=== PATIENT | female | born 1960 ===

== ENCOUNTER 2017-11-02 17:27 | Emergency (ER) | payer MEDICAID, OTHER ==
[2017-11-02 17:32] VITALS: BMI 27.9
[2017-11-02] MEDS ORDERED: Sodium Chloride 0.9% 1,000 ML IV ONE (18:05)
--- NOTE | 2017-11-02 18:15 | C.PDOC ---
History Of Present Illness 57 year old female with PMHx of hypertension and diabetes presents to the ED complaining of abdominal pain for one month, worse in the upper abdomen and epigastric region. Patient states she had a cholecystectomy in 1998. She denies any fever, nausea, vomiting, diarrhea or other medical complaints. Time Seen by Provider: 11/02/17 17:35 Chief Complaint (Nursing): Abdominal Pain History Per: Patient History/Exam Limitations: no limitations Onset/Duration Of Symptoms: Days Current Symptoms Are (Timing): Still Present Location Of Pain/Discomfort: Epigastric Associated Symptoms: denies: Fever, Chills, Nausea, Vomiting, Diarrhea Past Medical History Reviewed: Historical Data, Nursing Documentation, Vital Signs Vital Signs: Last Vital Signs Temp 98.2 F 11/02/17 20:45 Pulse 60 11/02/17 20:45 Resp 20 11/02/17 20:45 BP 144/67 11/02/17 20:45 Pulse Ox 99 11/02/17 20:45 - Medical History PMH: Hypercholesterolemia Surgical History: Cholecystectomy Family History: States: No Known Family Hx - Social History Hx Alcohol Use: No Hx Substance Use: No - Immunization History Hx Tetanus Toxoid Vaccination: No Hx Influenza Vaccination: No Hx Pneumococcal Vaccination: No Review Of Systems Except As Marked, All Systems Reviewed And Found Negative. Constitutional: Negative for: Fever, Chills Gastrointestinal: Positive for: Abdominal Pain (Pain to upper abdomen and epigastric region ). Negative for: Nausea, Vomiting, Diarrhea Physical Exam - Physical Exam Appears: Non-toxic, No Acute Distress Skin: Normal Color, Warm, Dry Head: Atraumatic, Normacephalic Eye(s): bilateral: Normal Inspection Oral Mucosa: Moist Neck: Normal ROM Cardiovascular: Rhythm Regular Respiratory: Normal Breath Sounds, No Rales, No Rhonchi, No Wheezing Gastrointestinal/Abdominal: Tenderness (Tenderness to epigastric region ), No Distention, No Guarding Extremity: Normal ROM Neurological/Psych: Oriented x3, Normal Speech Gait: Steady ED Course And Treatment - Laboratory Results Result Diagrams: 11/02/17 18:20 11/02/17 18:20 O2 Sat by Pulse Oximetry: 98 (RA) Pulse Ox Interpretation: Normal Medical Decision Making Medical Decision Making: Impression: Abdominal pain suspect gastirits pancreatitis vs pud. no ruq ttp. h/o of cholecycetomy Orders: - Labs - UA - Zofran 4mg IVP - Pantoprazole 40mg IVP Patient assessed and examined. Orders placed in for blood work. Urine collected and sent to lab for analysis. labs neg. pain resolved. abd soft no ttp. stable fordc Disposition - Disposition Referrals: [facility] [Outside] [facility] [Outside] Umair Turner [Staff Provider] - Disposition: HOME/ ROUTINE Disposition Time: 10:30 Condition: STABLE Additional Instructions: please follow up with your doctor. return to er with worsening symptoms or concerns. Prescriptions: Famotidine [Pepcid] 20 mg PO DAILY #20 tab Instructions: Hyperglycemia, Adult, Acute Abdomen (Belly Pain) Forms: [employer] (Jamaican) Print Language: ROMANSH - Clinical Impression Clinical Impression: Abdominal pain - Scribe Statement The provider has reviewed the documentation as recorded by the Scribe Sapphire Gu All medical record entries made by the Scribe were at my direction and personally dictated by me. I have reviewed the chart and agree that the record accurately reflects my personal performance of the history, physical exam, medical decision making, and the department course for this patient. I have also personally directed, reviewed, and agree with the discharge instructions and disposition.
[2017-11-02 18:26] LABS: BASO % 0.6 % (0.0-2.0); EOS % 0.9 % (0.0-4.0); LYMPH # 1.1 K/uL (1.0-4.3); LYMPH % 25.5 % (20.0-40.0); MEAN CELL VOLUME 87.8 fL (81.0-99.0); MEAN CORPUSCULAR HEMOGLOBIN 28.9 pg (27.0-31.0); MEAN CORPUSCULAR HGB CONC 32.8 g/dL (33.0-37.0); MEAN PLATELET VOLUME 7.6 fL (7.2-11.7); MONO # 0.4 K/uL (0.0-0.8); MONO % 9.5 % (0.0-10.0); NEUT # 2.7 K/uL (1.8-7.0); NEUT % 63.5 % (50.0-75.0); NRBC % 0.1 % (0.0-2.0); RBC 3.48 Mil/uL (3.80-5.20); WHITE BLOOD COUNT 4.2 K/uL (4.8-10.8)
[2017-11-02] MEDS ORDERED: Sodium Chloride 0.9% 1,000 ML ONE (18:30)
[2017-11-02 18:36] LABS: PROTHROMBIN TIME 10.5 SECONDS (9.7-12.2)
[2017-11-02 18:40] LABS: ALB/GLOB RATIO 1.9 (1.0-2.1); ALBUMIN 4.5 g/dL (3.5-5.0); BILIRUBIN,DIRECT 0.4 mg/dL (0.0-0.4)
[2017-11-02 19:13] LABS: SQUAMOUS EPITHIAL 2 /hpf (0-5); URINE BILIRUBIN NEGATIVE (NEGATIVE); URINE BLOOD NEGATIVE (NEGATIVE); URINE CLARITY Clear (Clear); URINE COLOR Colorless (YELLOW); URINE GLUCOSE (UA) 3+ mg/dL (Normal); URINE LEUKOCYTE ESTERASE NEG Leu/uL (Negative); URINE PROTEIN NEGATIVE (NEGATIVE); URINE UROBILINOGEN NORMAL mg/dL (0.2-1.0)
[2017-11-02] MEDS ORDERED: (Novolin R) Insulin Human Regular 100 units/ml vial IV STA (19:19)
[2017-11-02] MEDS ORDERED: (Novolin R) Insulin Human Regular 100 units/ml vial ONE (19:42)
[2017-11-02 20:46] VITALS: BP 144/67; PULSE 60; RESP 20; TEMP 98.2
[2017-11-02 22:31] VITALS: O2SAT 98
== END 2017-11-02 20:55 | disposition home or self-care (01) ==
LOC: C.ER 17:27
DX: R10.13 Epigastric pain (principal); E11.65 Type 2 diabetes mellitus with hyperglycemia
CPT/HCPCS: 80053; 81001; 82248; 82948; 83690; 85025; 85610; 85730; 96361; 96374; 96375; 99285; C9113; J2405; J7030